=== PATIENT | female | born 2005 | race Caucasian/White ===

== ENCOUNTER 2024-04-24 11:15 | Emergency (ER) | payer OTHER, SELFPAY ==
[2024-04-24 11:26] VITALS: BP 130/68
[2024-04-24 11:30] LABS: Glucose - Point of Care 154 mg/dl (70-99)
[2024-04-24 12:02] LABS: % Basophils 0.6 % (0-2); % Immature Granulocytes 0.3 % (0-0.5); % Lymphocytes 14.3 % (20.5-51.1); % Monocytes 6.3 % (1.7-9.3); % Neutrophils 77.5 % (42.2-75.2); Absolute Basophils 0.1 10^3/uL (0-0.2); Absolute Eosinophils 0.1 10^3/uL (0-0.7); Absolute Lymphocytes 1.5 10^3/uL (1.2-3.4); Absolute Monocytes 0.6 10^3/uL (0.1-0.6); Absolute Neutrophils 7.9 10^3/uL (1.4-6.5); Hematocrit 39.4 % (37.0-47.0); Mean Corpuscular Hgb 28.8 pg (27.0-31.0); Mean Corpuscular Volume 87.2 fL (81.0-99.0); Mean Platelet Volume 10.6 fL (7.4-10.4); Nucleated Red Blood Cells % 0 %; Platelet Count 202 10^3/uL (130-400); Red Blood Cell Count 4.52 10^6/uL (4.20-5.40); Red Cell Dist. Width 13.8 % (11.5-14.5); White Blood Cell Count 10.2 10^3/uL (4.8-10.8)
[2024-04-24 12:19] LABS: HCG, Serum Qualitative Screen Negative
[2024-04-24 12:20] LABS: ALT (SGPT) 17 U/L (0-35); AST (SGOT) 25 U/L (14-36); Albumin 4.7 g/dl (3.5-5.0); Alkaline Phosphatase 69 U/L (38-126); Blood Urea Nitrogen 15 mg/dl (7-17); Carbon Dioxide 28 mmol/L (22-30); Chloride 101 mmol/L (98-107); Glucose 158 mg/dl (70-99); Potassium 4.2 mmol/L (3.5-5.1); Sodium 137 mmol/L (135-145); Total Bilirubin 1.9 mg/dl (0.2-1.3); Total Protein 7.3 g/dl (6.3-8.2); eGFR > 60.00
[2024-04-24 13:49] VITALS: BP 122/82
[2024-04-24 14:00] VITALS: BP 113/71
[2024-04-24 14:02] VITALS: BMI 26.3
--- NOTE | 2024-04-24 14:43 | ED.GENMED ---
History of Present Illness
General
Chief Complaint: Fainting/Passed Out
Source: patient and family (Mother)
Exam Limitations: none
Time Seen by Provider: 04/24/24 13:19
Nursing documentation reviewed up to this point in time: agreed with
History of Present Illness
History of Present Illness:
18-year-old female with a past medical history of insulin-dependent diabetes on insulin pump who presents to the emergency room with her mother for evaluation of a lip laceration which she sustained after a syncopal episode this morning. Patient
reports that she woke up this morning and felt nauseated and checked her glucose and it was 400; she noted that her insulin pump had run out of batteries. She charged her insulin pump and administered herself 10 units of subcutaneous insulin And
then she went back to bed. When she woke up she got up to go to the bathroom and felt nauseated and lightheaded and had syncopal event. She says that she hit her lip on the bathroom counter but did not sustain any other injuries. EMS was called
by roommate but she decided not to go to the hospital ultimately mother brought her in to have laceration evaluated. She says she did not have any preceding chest pain or shortness of breath, palpitations. She denies any other complaints. She
feels well here aside from lower lip laceration. She says she is due for tetanus shot in 2025
Review of Systems
Review of Systems
All Other Systems: ROS reviewed and negative except as documented in HPI and ROS
EENT: Reports other (Lip laceration)
Respiratory: Denies trouble breathing
Cardiac: Reports syncope; Denies chest pain or palpitations
ABD/GI: Reports nausea; Denies abdominal pain
: Denies flank pain
Musculoskeletal: Denies neck pain or back pain
Neurological: Denies headache
Phy Exam
Physical Exam
Physical Exam:
General: Awake, alert, oriented x3; no acute distress
Head: Normocephalic, patient has 2 cm linear laceration on the lower lip parallel to but just inferior to the vermilion border; she also has a laceration on the inner lip appears to be a through and through laceration
Eyes: Conjunctiva normal, pupils equal round and reactive to light bilaterally
Throat: Airway intact, tongue atraumatic, no chipped or loose teeth noted on dental examination
Neck: Trachea midline, moving through full comfortable range of motion without pain
Lungs: Lungs clear to auscultation bilaterally
Heart: Regular rate and rhythm, no murmurs, gallops, or rubs
Neuro: No gross deficit
Extremities: Atraumatic, warm and well-perfused
Scores
Heart Failure Risk
Heart Failure Risk Score: Not Applicable
Heart Score for Chest Pain Patients
STEMI patient?: Not applicable
Withdrawal Assessment of Alcohol
Withdrawal Assessment Completed?: Not applicable
Course
Orders/Labs/Results
Orders:
Orders
04/24/24 11:16
Electrocardiogram (*1) Urgent
Reason for Study: Syncope
EKG- Treatment ONCE
04/24/24 11:32
Test Result ONCE
04/24/24 11:37
CBC/With Diff [Complete Blood Count/With Diff] Urgent
Comprehensive Metabolic Panel Urgent
HCG, Serum Qualitative Screen Urgent
04/24/24 13:31
Lidocaine/Epinephrine/Tetracai [Let Topical Anesthetic Gel] 3 ml .ROUTE .STK-MED ONE
04/24/24 14:42
Tetanus/Diphth/Acelpertussis [Adacel] 0.5 ml IM .ONCE ONE
Abnormal Lab Results
04/24/24 04/24/24
11:29 11:37
MPV 10.6 H fL
(7.4-10.4)
Absolute Neuts (auto) 7.9 H 10^3/uL
(1.4-6.5)
Neutrophils % 77.5 H %
(42.2-75.2)
Lymphocytes % 14.3 L %
(20.5-51.1)
Glucose 158 H mg/dl
(70-99)
Total Bilirubin 1.9 H mg/dl
(0.2-1.3)
POC Glucose 154 H mg/dl
(70-99)
04/24/24 11:37
04/24/24 11:37
Vital Signs
Initial and Last Documented VS:
Initial Vital Signs
Temp Pulse Resp BP Pulse Ox
37.6 C 86 16 130/68 98
04/24/24 11:26 04/24/24 11:26 04/24/24 11:26 04/24/24 11:26 04/24/24 11:26
Last Documented Vital Signs
Temp Pulse Resp BP Pulse Ox
37.6 C 80 16 113/71 100
04/24/24 11:26 04/24/24 14:30 04/24/24 11:04/24/24 14:00 04/24/24 14:30
Procedures
Laceration Closure
Lower Lip:
Status of Wound: clean
Size of Wound in cm: 2
Description of Wound Edges: sharp
Preparation: cleaned with saline
Anesthesia: 1% Lidocaine and Topical-LET
Revision/Debridement: routine- no revision
Type of Closure: layered closure and running stitch
Skin Closure Material: 5-0 chromic gut and other (6-Monocryl)
Number of sutures: 3
Additional information:
Two 5-0 Chromic Gut simple interrupted sutures placed on the inner lip for repair; then external laceration was repaired using a single running subcuticular suture 6-0 Monocryl; overlying skin approximated with Steri-Strips and Dermabond
MDM/Problems Addressed
Differential Diagnosis Includes:
Dysrhythmia, vasovagal episode, orthostasis, hypoglycemia
MDM/Problems Addressed:
18-year-old female presents for evaluation after syncopal episode; she is seeking evaluation for lip laceration. Patient had hyperglycemia related to insulin pump battery failure this morning; she was able to charge the battery gave her self some
subcutaneous insulin and went back to sleep and when she woke up she stood up and felt dizzy and passed out. She feels fine now and only has lip laceration. Using [place] head CT rules as a guideline no indication for emergent neuroimaging at
this point in time. She has no other injuries from the fa transient hypoglycemia in the setting of ll. EKG shows sinus rhythm with no QTc prolongation, no signs of Brugada, normal [place] interval, no ectopy. Her labs are essentially unremarkable; hCG
is negative. Could be that she was mildly dehydrated from her sugar running high versus transient hypoglycemia in the setting of exogenous insulin. Will update tetanus. Repair laceration.
Laceration repaired as documented procedure note. Tetanus updated. Patient remains well-appearing with stable vitals. Stable for discharge follow-up with PCP. Spoke about return precautions all questions answered.
Chronic conditions affecting care:
Insulin-dependent diabetes
*Pulse Oximetry
Patient hypoxic: no
*Critical Care Note
Total Time (30-74mins, 75-104mins- exclusive of procedures): Not Applicable
Data Reviewed
Source: patient and family
Further Testing Considered But Not Given:
Considered need for CT head
ED Attending Note
-
Portions of this chart may have been created with voice recognition software.� Occasional wrong word or��sound alike� substitutions may have occurred due to the inherent limitations of voice recognition software.
Discharge Plan
Departure
Patient Disposition: Home (Routine Discharge)
Date of Disposition: 04/24/24
Time of Disposition: 14:42
Patient with high blood pressure during this ER visit?: No
Discharge Problem:
Laceration of lip, Syncope
Instructions: Syncope (Fainting) (DC), Laceration
Activity Restrictions/Additional Instructions:
Thank you for visiting the Emergency Department at [facility].
1. Please schedule a follow up appointment as directed. Call first thing tomorrow morning to make an appointment.
2. If indicated, please take your medications as instructed and indicated on discharge paperwork.
3. If any of your symptoms do not improve, or persist, or become more severe within 6-12 hours, please return to the emergency department for further care.
4. Please return to the emergency department if you develop a headache, neck pain/stiffness, fever greater than 100.4F, chest pain, shortness of breath, persistent nausea, vomiting, slurred speech, difficulty walking, numbness/tingling, weakness,
signs of infection or any other symptoms that are worrisome to you.
Please call [phone] if you have any questions.
Interventions
Interventions:
*Risk Screen - Suicide Last Done: 04/24/24 11:26
*Neglect/Abuse Screening Last Done: 04/24/24 11:26
ED- Fall Risk Assessment Last Done: 04/24/24 14:02
ED- Cardiac Assessment Last Done: 04/24/24 14:02
ED- Neurological Assessment Last Done: 04/24/24 14:02
Discharge Date and Time
Print Language: ARABIC
[2024-04-24] MEDS: ADACEL 0.5 ML IM (14:49)
== END 2024-04-24 15:04 | disposition home or self-care (01) ==
LOC: EMR 11:15
PROVIDERS: Emergency Medicine; EMERGENCY PHYSICIAN Emergency Medicine; FAMILY PHYSICIAN Pediatrics Pediatric Endocrinology
DX: S01.511A Laceration without foreign body of lip, initial encounter (principal); W22.09XA Striking against other stationary object, initial encounter; R55 Syncope and collapse; E11.9 Type 2 diabetes mellitus without complications; Z79.4 Long term (current) use of insulin; Z96.41 Presence of insulin pump (external) (internal); Z23 Encounter for immunization
CPT/HCPCS: 12051; 90471; 99284; 80053; 82962; 84703; 85025; 90715; 93005